=== PATIENT | female | born 1975 | race African-American/Black ===

== ENCOUNTER 2021-02-06 20:07 | Emergency (ER) | payer OTHER ==
[~2021-02-06] VITALS: Ht 162.6 cm; Wt 64.0 kg
[2021-02-06] MEDS ORDERED: KETOROLAC 60MG/2ML VIAL IM ONE (23:00)
[2021-02-06] MEDS ORDERED: SULFAMETHOXAZOLE/TRIMETHOPRIM 800/160MG TABLET PO ONE (23:00)
[2021-02-06] MEDS ORDERED: CEPHALEXIN 250MG CAPSULE PO ONE (23:00)
[2021-02-07] MEDS ORDERED: SULF1TAB48 MT (00:53)
[2021-02-07] MEDS ORDERED: CEPH500T MT (00:53)
[2021-02-07 01:19] VITALS: BP 138/78
== END 2021-02-07 01:20 | disposition home or self-care (01) ==
LOC: ER 20:07
DX: L03.112 Cellulitis of left axilla (principal)
CPT/HCPCS: 96372; 99283; J1885